=== PATIENT | male | born 1965 | race Caucasian/White ===

== ENCOUNTER 2022-01-18 13:00 | Outpatient (RCR) | payer OTHER, SELFPAY | END 2022-03-01 16:48 | disposition home or self-care (01) | PROVIDERS: PCP Family Medicine; Visit Provider Orthopaedic Surgery Sports Medicine | DX: M76.9 Unspecified enthesopathy, lower limb, excluding foot (principal); Z51.89 Encounter for other specified aftercare | CPT/HCPCS: 97110; 97140; 97162 ==

== ENCOUNTER 2022-12-30 10:08 | Outpatient (CLI) | payer OTHER, SELFPAY | END 2022-12-30 10:09 | disposition home or self-care (01) | PROVIDERS: PCP Family Medicine; Visit Provider Family Medicine | DX: Z00.00 Encounter for general adult medical examination without abnormal findings (principal); I10 Essential (primary) hypertension; E78.5 Hyperlipidemia, unspecified; R07.9 Chest pain, unspecified; E66.01 Morbid (severe) obesity due to excess calories; Z12.5 Encounter for screening for malignant neoplasm of prostate | CPT/HCPCS: 80053; 80061; 82043; 82550; 82553; 82570; 84153 ==

== ENCOUNTER 2023-01-13 11:24 | Outpatient (CLI) | payer OTHER, SELFPAY ==
--- NOTE | 2023-01-13 12:30 | W.ANESCHARGE ---
Anesthesia Charges Start Date/Time Anesthesia Start Date: 01/13/23 Anesthesia Start Time: 12:21 Stop Date/Time Anesthesia Stop Date: 01/13/23 Anesthesia Stop Time: 12:54
--- NOTE | 2023-01-13 12:57 | W.ANESCHARGE ---
Anesthesia Charges Start Date/Time Anesthesia Start Date: 01/13/23 Anesthesia Start Time: 12:21 Stop Date/Time Anesthesia Stop Date: 01/13/23 Anesthesia Stop Time: 12:54
== END 2023-01-13 11:25 | disposition home or self-care (01) ==
LOC: OP CLINIC 11:24
PROVIDERS: PCP Family Medicine; Visit Provider Surgery
DX: Z12.11 Encounter for screening for malignant neoplasm of colon (principal); K63.5 Polyp of colon; Z80.0 Family history of malignant neoplasm of digestive organs; Z86.010 Personal history of colon polyps
CPT/HCPCS: 00811; 45385; 88305; J2704

== ENCOUNTER 2023-01-28 12:46 | Outpatient (CLI) | payer OTHER, SELFPAY ==
--- NOTE | 2023-01-28 13:00 | CRLHL7_ITS ---
For Patients: As a result of the Cures Act, medical imaging exams and procedure reports are released immediately into your electronic medical record. You may view this report before your referring provider. If you have questions, please contact your health care provider. CLINICAL HISTORY: Tenderness TECHNIQUE: The carotid circulations and the vertebral arteries in the neck were examined with deal-scale ultrasound, color-flow and Doppler spectral analysis. Degrees of stenosis were determined using SRU 2002 Consensus Panel Criteria. FINDINGS: Sonographic images demonstrate mild bilateral evidence of atherosclerotic plaque formation without suspicious soft tissue mass. There was antegrade blood flow demonstrated within the vertebral arteries and the subclavian arteries demonstrated a normal triphasic waveform. The spectral Doppler tracings of the common carotid, internal and external carotid arteries demonstrate mild abnormal turbulence and spectral broadening within the proximal right ICA. There was elevation of peak systolic blood flow within the proximal right ICA measuring 159 cm/second which would indicate a hemodynamically-significant stenosis by SRU criteria. The ICA/CCA peak systolic velocity ratio measures 0.9 on the right and 0.6 on the left. IMPRESSION: 50-69 percent stenosis of the proximal right ICA. Less than 50 percent stenosis of the left ICA. Dictated by Fish Martinez MD @ 01/28/2023 1:48:01 PM (Electronically Signed)
== END 2023-01-28 12:47 | disposition home or self-care (01) ==
LOC: US 12:46
PROVIDERS: PCP Family Medicine; Visit Provider Family Medicine
DX: I10 Essential (primary) hypertension (principal); I35.1 Nonrheumatic aortic (valve) insufficiency; I34.0 Nonrheumatic mitral (valve) insufficiency; I65.23 Occlusion and stenosis of bilateral carotid arteries; H93.12 Tinnitus, left ear; R07.9 Chest pain, unspecified; E78.5 Hyperlipidemia, unspecified
CPT/HCPCS: 93306; 93880

== ENCOUNTER 2023-02-22 08:12 | Outpatient (CLI) | payer OTHER, SELFPAY ==
[2023-02-22 10:23] VITALS: BP 153/93; PULSE 90
--- NOTE | 2023-02-22 11:53 | W.PM.STED ---
Stress Test Note Date Date of test: 02/22/23 Providers Primary care provider: Cele Remy Stress test physician: Christiano Mack Stress Test Note Stress test ordered: Stress Myoview Indication for test: Chest pain Stress test medicine: Kat Results discussion: Patient is a very nice 57-year-old gentleman who presents for the above test, discussion of the risks benefits side effects is undertaken, along with review of the cardiac stress test medical history. Initial EKG shows normal sinus rhythm, with a blood pressure 150/88, no acute ST wave changes noted. Standard exercise Myoview was done over a time course of 10 minutes 40 seconds. He achieved a metabolic equivalent of 12.1 Mets, with a maximum heart rate of 149. Maximum blood pressure was 190/85 condition was felt to be excellent. During this test there is no appreciable ST wave changes suggestive of ischemia there is no dysrhythmias, and other than some mild leg discomfort, he had no other symptoms. Impression: Negative Electrographic portion of exercise Myoview Follow up suggested: Await nuclear images, clinical correlation with the needed, patient left this testing facility back to baseline, in good condition.
== END 2023-02-22 08:13 | disposition home or self-care (01) ==
LOC: STRESS 08:13
PROVIDERS: PCP Family Medicine; Visit Provider Family Medicine
DX: R07.9 Chest pain, unspecified (principal)
CPT/HCPCS: 78452; 93016; 93017; A9500

== ENCOUNTER 2024-02-13 08:22 | Outpatient (CLI) | payer OTHER, SELFPAY | END 2024-02-13 08:23 | disposition home or self-care (01) | LOC: NFLDREF 02-14 18:53 | PROVIDERS: PCP Physician Assistant Medical; Referring Provider Physician Assistant Medical; Visit Provider Physician Assistant Medical | DX: I10 Essential (primary) hypertension (principal); E78.2 Mixed hyperlipidemia; N52.9 Male erectile dysfunction, unspecified; R53.83 Other fatigue; Z12.5 Encounter for screening for malignant neoplasm of prostate | CPT/HCPCS: 80053; 80061; 84403; G0103 ==

== ENCOUNTER 2024-05-17 15:00 | Outpatient (CLI) | payer OTHER, SELFPAY | END 2024-05-17 15:01 | disposition home or self-care (01) | LOC: NFLDREF 05-27 07:46 | PROVIDERS: PCP Physician Assistant Medical; Referring Provider Physician Assistant Medical; Visit Provider Physician Assistant Medical | DX: Z01.818 Encounter for other preprocedural examination (principal); I10 Essential (primary) hypertension; K40.90 Unilateral inguinal hernia, without obstruction or gangrene, not specified as recurrent; E78.2 Mixed hyperlipidemia; N52.9 Male erectile dysfunction, unspecified | CPT/HCPCS: 80061; 84450; 84460 ==

== ENCOUNTER 2024-05-31 06:25 | Day surgery (SDC) | payer OTHER, SELFPAY ==
[2024-05-31] VITALS (12 sets, daily range): BP systolic 125–151; BP diastolic 54–89; PULSE 59–72; RESP 12–16; TEMP 36.3–36.9; O2SAT 91–97; BMI 32.0
--- OUTSIDE RECORDS SUMMARY | 2024-05-31 06:28 | XMS_ITS | Continuity of Care Document ---
Author Name [facility] Organization [facility] Care Team Providers Care Communications Scientist Name Role Phone [facility] Unavailable Unavailable Problems Combined list of problems from Department of Defense and Veterans Affairs facilities. It does not include entries that were removed or entered in error. Problem Status Onset Date Problem Type Date of Resolution Comments Source Diagnosis: ICD-10-CM H90.3 Sensorineural hearing loss, bilateral Active Diagnosis [facility] Diagnosis: ICD-10-CM Z46.1 Encounter for fitting and adjustment of hearing aid Active Diagnosis [facility] Medications Combined list of outpatient medications from Department of Defense and Veterans Affairs facilities.Medications provided include 1) outpatient medications from the last 15 months, and 2) patient-reported medications. Medication Details Route Status Patient Instructions Prescription Expires Prescription Number Last Dispense Date Ordering Provider Order Date Order Qty Source AMLODIPINE BESYLATE (amlodipine besylate), 10 MG, TABLET, ORAL, LUPIN PHARMACEU, 1000 ea. BOTTLE Active [id number] 4 2023 90 Pharmac y Data Transac tion Service Facilit y AMLODIPINE BESYLATE (amlodipine besylate), 10 MG, TABLET, ORAL, LUPIN PHARMACEU, 1000 ea. BOTTLE Active [id number] 4 2023 30 Pharmac y Data Transac tion Service Facilit y AMLODIPINE BESYLATE (amlodipine besylate), 10 MG, TABLET, ORAL, LUPIN PHARMACEU, 1000 ea. BOTTLE Active [id number] 4 2023 30 Pharmac y Data Transac tion Service Facilit y AMLODIPINE BESYLATE (amlodipine besylate), 10 MG, TABLET, ORAL, LUPIN PHARMACEU, 1000 ea. BOTTLE Active [id number] 4 2023 90 Pharmac y Data Transac tion Service Facilit y LISINOPRIL- HCTZ (LISINOPRIL /HYDROCHLOR OTHIAZIDE), 10-12.5MG, TABLET, ORAL, LUPIN PHARMACEU, 100 ea. BOTTLE Active [id number] 4 2023 90 Pharmac y Data Transac tion Service Facilit y LISINOPRIL- HCTZ (LISINOPRIL /HYDROCHLOR OTHIAZIDE), 10-12.5MG, TABLET, ORAL, LUPIN PHARMACEU, 100 ea. BOTTLE Active [id number] 4 2023 30 Pharmac y Data Transac tion Service Facilit y LISINOPRIL- HCTZ (LISINOPRIL /HYDROCHLOR OTHIAZIDE), 10-12.5MG, TABLET, ORAL, LUPIN PHARMACEU, 100 ea. BOTTLE Active [id number] 4 2023 30 Pharmac y Data Transac tion Service Facilit y LISINOPRIL- HCTZ (LISINOPRIL /HYDROCHLOR OTHIAZIDE), 10-12.5MG, TABLET, ORAL, LUPIN PHARMACEU, 100 ea. BOTTLE Active [id number] 4 2023 90 Pharmac y Data Transac tion Service Facilit y OLOPATADINE HCL (olopatadin e HCl), 0.1 %, DROPS, OPHTHALMIC, SOMERSET THERAP, 5 ml DROP BTL Cancele d [id number] : 2023 0 Pharmac y Data Transac tion Service Facilit y SILDENAFIL CITRATE (sildenafil citrate), 25 MG, TABLET, ORAL, AUROBINDO PHARM, 30 ea. BOTTLE Active [id number] 4 2023 10 Pharmac y Data Transac tion Service Facilit y SIMVASTATIN (SIMVASTATI N), 40MG, TABLET, ORAL, AUROBINDO PHARM, 90 ea. BOTTLE Cancele d [id number] : 2023 0 Pharmac y Data Transac tion Service Facilit y Allergies, Adverse Reactions, Alerts Combined list of allergies from Department of Defense and Veterans Affairs facilities. It does not include entries that were removed or entered in error. Substance Category Reaction Severity Reaction type Status Date Reported Comments Source No Known Allergies Drug allergy (disorder) active 01/03/2009 [facility] ([facility]) Immunizations Combined list of available immunizations from the Department of Defense and Veterans Affairs facilities. Immunization Series Date Given Administered By Site Reaction Lot Number CVX Code Drug Activated Sludge Attendant Status Comments Source typhoid vaccine, parenteral, other than acetone-kille d, dried 1 2002 Unknown, Provider [id number] Sanofi Pasteur ([facility]) complet ed typhoid vaccine, parentera l, other than acetone-k illed, dried DoD influenza virus vaccine, whole virus 1 2002 Unknown, Provider [id number] Sanofi Pasteur ([facility]) complet ed influenza virus vaccine, whole virus DoD influenza virus vaccine, whole virus 1 2002 Unknown, Provider [id number] Sanofi Pasteur ([facility]) complet ed influenza virus vaccine, whole virus DoD tuberculin skin test; purified protein derivative solution, intradermal 1 2001 Unknown, Provider [id number] Sanofi Pasteur ([facility]) complet ed tuberculi n skin test; purified protein derivativ e solution, intraderm al DoD meningococcal polysaccharid e vaccine (MPSV4) 1 2000 Unknown, Provider [id number] Sanofi Pasteur ([facility]) complet ed meningoco ccal polysacch aride vaccine (MPSV4) DoD typhoid vaccine, parenteral, other than acetone-kille d, dried 1 2000 Unknown, Provider [id number] Sanofi Pasteur ([facility]) complet ed typhoid vaccine, parentera l, other than acetone-k illed, dried DoD influenza virus vaccine, whole virus 1 2000 Unknown, Provider [id number] Sanofi Pasteur ([facility]) complet ed influenza virus vaccine, whole virus [facility] tuberculin skin test; purified protein derivative solution, intradermal 1 2000 Unknown, Provider [id number] 96 Sanofi Pasteur ([facility]) complet ed tuberculi n skin test; purified protein derivativ e solution, intraderm al DoD anthrax vaccine 3 1999 Unknown, Provider [id number] [facility] complet ed anthrax vaccine DoD anthrax vaccine 2 1999 Unknown, Provider [id number] [facility] ([place]) complet ed anthrax vaccine DoD anthrax vaccine 1 1999 Unknown, Provider [id number] [facility] complet ed anthrax vaccine DoD tuberculin skin test; purified protein derivative solution, intradermal 1 1999 Unknown, Provider [id number] 96 [facility] ([facility]) complet ed tuberculi n skin test; purified protein derivativ e solution, intraderm al [facility] influenza virus vaccine, whole virus 1 1998 Unknown, Provider 16 () complet ed influenza virus vaccine, whole virus DoD typhoid vaccine, parenteral, other than acetone-kille d, dried 1 1998 Unknown, Provider [id number] 41 [employer] ([place]) complet ed typhoid vaccine, parentera l, other than acetone-k illed, dried DoD influenza virus vaccine, whole virus 2 1997 Unknown, Provider [id number] 16 [employer] ([place]) complet ed influenza virus vaccine, whole virus DoD influenza virus vaccine, whole virus 1 1996 Unknown, Provider [id number] 16 [employer] ([place]) complet ed influenza virus vaccine, whole virus [facility] typhoid vaccine, parenteral, other than acetone-kille d, dried 1 1996 Unknown, Provider [id number] 41 [employer] ([place]) complet ed typhoid vaccine, parentera l, other than acetone-k illed, dried [facility] meningococcal polysaccharid e vaccine (MPSV4) 1 1995 Unknown, Provider [id number] 32 [employer] ([place]) complet ed meningoco ccal polysacch aride vaccine (MPSV4) [facility] hepatitis A vaccine, adult dosage 2 1995 Unknown, Provider [id number] 52 [employer] ([place]) complet ed hepatitis A vaccine, adult dosage DoD yellow fever vaccine 1 1994 Unknown, Provider [id number] 37 [employer] ([place]) complet ed yellow fever vaccine [facility] tetanus and diphtheria toxoids, adsorbed, preservative free, for adult use (2 Lf of tetanus toxoid and 2 Lf of diphtheria toxoid) 1 1994 Unknown, Provider 09 () complet ed tetanus and diphtheri a toxoids, adsorbed, preservat mariela free, for adult use (2 Lf of tetanus toxoid and 2 Lf of diphtheri a toxoid) DoD typhoid vaccine, parenteral, acetone-kille d, dried ([place] ) 1 1986 Unknown, Provider 53 () complet ed typhoid vaccine, parentera l, acetone-k illed, dried ([place] ) [facility] trivalent poliovirus vaccine, live, oral 1 1984 Unknown, Provider 02 () complet ed trivalent polioviru s vaccine, live, oral DoD vaccinia (smallpox) vaccine 1 1984 Unknown, Provider 75 () complet ed vaccinia (smallpox ) vaccine DoD measles, mumps and rubella virus vaccine 1 1983 Unknown, Provider 03 () complet ed measles, mumps and rubella virus vaccine DoD Encounters Combined list of: 1) Encounters from Department of Veterans Affairs facilities going back up to thelast 18 months. 2) Encounters from the Department of Defense facilities going back up to 280 months. Location Location Details Encounter Type Encounter Number Reason For Visit Attending Provider ADM Date DC Date Status Disposition Source [place] [facility] HEARING AID REPAIR/MOD IFYING [id number] Diagnos is: ICD-10- CM Z46.1 Encount er for fitting and adjustm ent of hearing aid<br/ > DONTANNER PALACIOSERLY A 05/04 [facility] [place] [facility] CONFORMITY EVALUATION [id number] Diagnos is: ICD-10- CM H90.3 Sensori neural hearing loss, bilater al
DONOHTANNER GANDHI MBERLY A 06/16 [facility] Procedures Combined list of: 1) Procedures from Department of Veterans Affairs facilities going back up to thelast 18 months, not all [place] non-surgical procedures are included; 2) All procedures from the Department of [facility] facilities. Procedure Procedure Type Code Date Perfomer Comments Sourc e PRESCRIPTION DRUG, ORAL, NONCHEMOTHERAPEUTIC, NOT OTHERWISE SPECIFIED 05/28/2004 [facility] UNLISTED CHEMISTRY PROCEDURE 02/24/2004 [facility] DETERMINATION OF REFRACTIVE STATE 05/20/2003 [facility] THERAPEUTIC PROCEDURE, 1 OR MORE AREAS, EACH 15 MINUTES; THERAPEUTIC EXERCISES TO DEVELOP STRENGTH AND ENDURANCE, RANGE OF MOTION AND FLEXIBILITY 04/08/2003 [facility] THERAPEUTIC PROCEDURE, 1 OR MORE AREAS, EACH 15 MINUTES; THERAPEUTIC EXERCISES TO DEVELOP STRENGTH AND ENDURANCE, RANGE OF MOTION AND FLEXIBILITY 03/22/2003 [facility] MANUAL THERAPY TECHNIQUES (EG, MOBILIZATION/ MANIPULATION, MANUAL LYMPHATIC DRAINAGE, MANUAL TRACTION), 1 OR MORE REGIONS, EACH 15 MINUTES 03/20/2003 [facility] MANUAL THERAPY TECHNIQUES (EG, MOBILIZATION/ MANIPULATION, MANUAL LYMPHATIC DRAINAGE, MANUAL TRACTION), 1 OR MORE REGIONS, EACH 15 MINUTES 03/15/2003 [facility] APPLICATION OF A MODALITY TO 1 OR MORE AREAS; ULTRASOUND, EACH 15 MINUTES 03/13/2003 [facility] THERAPEUTIC PROCEDURE, 1 OR MORE AREAS, EACH 15 MINUTES; THERAPEUTIC EXERCISES TO DEVELOP STRENGTH AND ENDURANCE, RANGE OF MOTION AND FLEXIBILITY 03/08/2003 [facility] MANUAL THERAPY TECHNIQUES (EG, MOBILIZATION/ MANIPULATION, MANUAL LYMPHATIC DRAINAGE, MANUAL TRACTION), 1 OR MORE REGIONS, EACH 15 MINUTES 03/06/2003 [facility] THERAPEUTIC PROCEDURE, 1 OR MORE AREAS, EACH 15 MINUTES; THERAPEUTIC EXERCISES TO DEVELOP STRENGTH AND ENDURANCE, RANGE OF MOTION AND FLEXIBILITY 03/04/2003 [facility] THERAPEUTIC PROCEDURE, 1 OR MORE AREAS, EACH 15 MINUTES; THERAPEUTIC EXERCISES TO DEVELOP STRENGTH AND ENDURANCE, RANGE OF MOTION AND FLEXIBILITY 02/01/2003 [facility] THERAPEUTIC PROCEDURE, 1 OR MORE AREAS, EACH 15 MINUTES; THERAPEUTIC EXERCISES TO DEVELOP STRENGTH AND ENDURANCE, RANGE OF MOTION AND FLEXIBILITY 01/03/2003 [facility] THERAPEUTIC PROCEDURE, 1 OR MORE AREAS, EACH 15 MINUTES; THERAPEUTIC EXERCISES TO DEVELOP STRENGTH AND ENDURANCE, RANGE OF MOTION AND FLEXIBILITY 12/13/2002 [facility] LOCAL EXCISION OF LESION OR TISSUE OF OTHER BONE, EXCEPT FACIAL BONES 10/31/2002 [facility] SUTURE OF CAPSULE OR LIGAMEN T OF UPPER EXTREMITY 10/31/2002 [facility] DETERMINATION OF REFRACTIVE STATE 02/26/2002 [facility] CARDIOVASCULAR STRESS TEST USING MAXIMAL OR SUBMAXIMAL TREADMILL OR BICYCLE EXERCISE, CONTINOUS ELECTROCARDIOGRAPHIC MONITORING, PHARMACOLOGIC STRESS; TRACING ONLY, W/O INTERPRET AND REPORT 12/13/2001 [facility] OPHTHALMOLOGICAL SERVICES: MEDICAL EXAMINATION AND EVALUATION WITH INITIATION OF DIAGNOSTIC AND TREATMENT PROGRAM; INTERMEDIATE, NEW PATIENT 09/10/1999 [facility] CLOSED REDUCTION OF DISLOCATION OF SHOULDER 10/11/1993 D oD Social History Combined list of available smoking, tobacco, and other social history from Department of Defense and Veterans Affairs facilities. Social History Type Response Date Comment Sourc e This section is an empty social history section. DoD
--- OUTSIDE RECORDS SUMMARY | 2024-05-31 06:28 | XMS_ITS | Encounter Summary ---
Author Name [facility] [place] [facility] [place] [facility] [place] Address [address] [place] [id number] Support Name Relationship Address Phone LISA SMITH Next of Kin [address] [address] LISA SMITH [place] [facility] Contact [address] [address] Selected Encounter This section includes the information on record at [place] for the Encounter. Date/Time Encounter Type Encounter Description Reason Provider Source Jun 16, 2023 07:45 AM CONFORMITY EVALUATION AUDIOLOGY ICD-10-CM H90.3 Sensorineural hearing loss, bilateral MANE COX Rosio Encounter Template Text not used by [place] Assessments - Encounter Diagnoses This section includes the primary and secondary diagnoses documented for the Encounter. Date/Time Primary/Secondary Diagnosis Diagnosis Name Provider Source Jun 16, 2023 03:55 PM PRIMARY Sensorineural hearing loss, bilateral MANE COX [facility] Jun 16, 2023 03:55 PM SECONDARY Encounter for fitting and adjustment of hearing aid MANE COX [facility] Jun 16, 2023 03:55 PM SECONDARY Tinnitus, bilateral MANE COX [facility] Encounter Notes: All associated encounter notes This section contains the clinical notes associated to the Encounter. Date/Time Encounter Note(s) Provider Source Jun 16, 2023 07:39 AM AUDIOLOGY NOTE: LOCAL TITLE: AUDIOLOGY CLINIC NOTE STANDARD TITLE: AUDIOLOGY NOTE DATE OF NOTE: JUN 16, 2023@07:39 ENTRY DATE: JUN 16, 2023@07:39:26 AUTHOR: DENNIS COX COSIGNER: URGENCY: STATUS: COMPLETED DIAGNOSIS: Encounter for Fitting and Adjustment of Hearing Aid Sensorineural loss - bilateral Tinnitus - bilateral REASON FOR VISIT: was seen for Hearing Aid [place] Appointment. Therapeutic - hearing aid fitting, conformity evaluation (real-ear measures), orientation and counseling using a standard curriculum (30 minutes). LOCATION OF VISIT (ROOM NUMBER): 115 Personal Protective Equipment (PPE): PPE medical mask was worn by provider as required by [place] guidelines; mask was also worn by as recommended by [place] guidelines. Sherwood was unaccompanied. HISTORY: denies changes in hearing or new otologic symptoms since their last visit to the clinic. Sherwood is an experienced hearing aid wearer and is returning for the fitting of his replacement lost hearing aids (the aids were lost when he sent them for repair & [facility] shipped them to the wrong address). Hearing Aids (Right and Left), fit (date): 03/25/2021 L&D REPLACEMENT Make: Oticon Model: More 1 MINIRITE-R Style: [facility] Serial #: [id number] Accessories: none LOST Hearing Aids (Right and Left), fit (date): 03/25/2021 LOST Make: Oticon Model: More 1 MINIRITE-R Style: [facility] Serial #: [id number] Accessories: none OTOSCOPY: Both Ears: Free of excessive cerumen. Normal anatomy bilaterally. ACTION + CONFORMITY EVAUATION (VERIFICATION OF HEARING AID FUNCTION): Hearing aids are a good physical fit to pt's ears. Feedback test was completed and feedback cage manager was activated. No feedback was noted from either aid, even with head/jaw movement or with objects near the ears. Hearing aids were programmed to NAL-NL2 prescriptive targets with the AudioScan Verifit, which were derived from the Veterans hearing loss. According to the NAL-NL2 fitting method, the patient's hearing aids are meeting target for soft, average, and loud speech. Loudness tolerance was measured using a 90 dB MPO tone sweep and the patient was able to tolerate the output of the hearing devices. Veterans subjective impressions were considered while adjusting the hearing aids. Sherwood reported good sound quality and equal balance between ears after adjustments were made. Sherwood reported a comfortable fit. Sherwood demonstrated understanding of the new aids and was able to insert the hearing aids appropriately, as well as manipulate the volume control. Volume control enabled - Synchronized Program button enabled Programs are as follows: 1. Automatic (General) 2. Speech In Noise 3. Comfort Veterans iPhone cell phone was paired to the hearing aids. A practice phone call was completed to verify functionality. Education and counseling was completed regarding streaming capabilities. The wet end helper phone application was reviewed in detail (volume control, program changes, settings, etc.) and demonstrated in the office. Provided pt with the wet end helper technical support phone number. Sherwood was counseled using a standard curriculum (30 minutes) regarding: - Full-time hearing aid use and acclimating to amplification - Realistic expectations for hearing aid use - Appropriate communication strategies - Warning about lithium ion toxicity - How to charge the hearing aids - Location and operation of all controls - Proper care and maintenance - Protecting hearing in high noise levels - [facility] and Call Center contact information and services, including the trial period. - counseled using a standard curriculum on tinnitus, its physiologic basis, potential triggers, and treatment options/management strategies such as using a fan at night, avoiding silence, and trying to habituate to the sound. Ordered a Sound [place] Tinnitus Masker with pillow speakers. Prognosis for success is good, given the Veterans response to the hearing aids. Hearing aids were issued and supplies were mailed. PLAN: 1) does not feel he needs follow up and so will return to clinic for service as needed. IS IN AGREEMENT WITH THIS PLAN Suicide Screen: C-SSRS Screening [place]-Suicide Severity Rating Scale (C-SSRS Screener) 1. Over the past month, have you wished you were or wished you could go to sleep and not wake up? No 2. Over the past month, have you had any actual thoughts of killing yourself? No 3. Over the past month, have you been thinking about how you might do this? Response not required due to responses to other questions. 4. Over the past month, have you had these thoughts and had some intention of acting on them? Response not required due to responses to other questions. 5. Over the past month, have you started to work out or worked out the details of how to kill yourself? Response not required due to responses to other questions. 6. If yes, at any time in the past month did you intend to carry out this plan? Response not required due to responses to other questions. 7. In your lifetime, have you ever done anything, started to do anything, or prepared to do anything to end your life (for example, collected pills, obtained a gun, gave away valuables, went to the roof but didn't jump)? No 8. If YES, was this within the past 3 months? Response not required due to responses to other questions. /jasper/ Lexus BRICENO, CCC-A DESIGN PROJECT MANAGER Signed: 06/16/2023 15:56 DENNIS COX [facility]
[2024-05-31] MEDS: SODIUM CHLORIDE 0.9 % (FLUSH) 10 ML SYRINGE IVF (07:10)
[2024-05-31] MEDS: LACTATED RINGERS 500 ML 500 ML 100 ML IV (07:12)
[2024-05-31] MEDS: CEFAZOLIN 2 GM INJ IVP (08:35)
[2024-05-31] MEDS: BUPIVACAINE 0.25% 30 ML INJECTION (09:10)
--- NOTE | 2024-05-31 09:16 | PM.GSPRC ---
Operative Note Date of procedure: 05/31/24 Pre-op diagnosis: Symptomatic left inguinal hernia Post-op diagnosis: Same Type of Procedure: Laparoscopic repair of left inguinal hernia with mesh Indications: The patient is a 58-year-old male who has a history of a left inguinal hernia that more recently became symptomatic with running and activity. On exam he was found to have a small reducible left inguinal hernia. After discussion of options, he agreed to proceed with repair. Procedure Description: After discussing the risks and benefits of the procedure, the patient signed informed consent.? The operative site was marked and the patient was brought to the operating room and placed on the operating table in supine position.? Care was taken to pad the patient's pressure points.?? The patient was then intubated by anesthesia.?? The operative site was then prepped and draped in the usual sterile fashion.? A time-out was then performed. A curvilinear incision was made below the umbilicus. Dissection was carried down to subcutaneous tissue until the anterior rectus fascia was encountered. This was incised off the midline on the left. The rectus muscle fibers were then retracted exposing the posterior fascia. A port with a dissecting balloon was then introduced into the pre-preperitoneal space. This was inflated under direct vision. The balloon was deflated, removed, and a 10 mm working port was placed. The space was insufflated and a 10 mm 30-degree scope was then advanced into the space. Two 5 mm ports were placed in the midline under direct vision. Dissection began on the left side. Jam's ligament and the pubic bone were exposed medially. Following this, dissection was carried out laterally. A indirect sac was noted. This was dissected free from the cord structures using blunt dissection. Small vessels that were noted to be bleeding in the preperitoneal fat were cauterized for hemostasis the sac was noted to be quite small. The internal ring was examined and the groin palpated to ensure no cord lipoma was noted. There was none. Once the sac was completely reduced, a piece of Bard 3DMax mesh for the appropriate side was placed into the abdomen. This was positioned with the marker pointed medially. A Tacker was used to attach the mesh medially at Jam's ligament. Once this was completed, the preperitoneal space desufflated under direct vision to ensure the mesh laid flat. 15 mL of 0.5% Marcaine were instilled into the preperitoneal space through a port. The ports were removed. The fascia from the infraumbilical port was closed with 0 Vicryl. The skin incisions were closed with absorbable subcuticular suture. Sterile dressings were then applied. The scrotum was examined to ensure that both testicles were down. Instrument sponge and needle counts were correct at the end of the case. ? The patient was then woken and transported to the recovery area in stable condition. ? The patient tolerated the procedure well. Findings: Small indirect left inguinal hernia Implants: Bard 3DMax mesh Anesthesia: GETA Surgeon: Myrna Marie MD Estimated blood loss (mL): 5 Condition: stable Disposition: PACU
--- NOTE | 2024-05-31 09:32 | P.ANES_ITS ---
Anesthesia Charges Start Date/Time Anesthesia Start Date: 05/31/24 Anesthesia Start Time: 08:16 Stop Date/Time Anesthesia Stop Date: 05/31/24 Anesthesia Stop Time: 09:28 Coding CPT Codes CPT Codes: ANESTH REPAIR OF HERNIA - 40529 ([id number]) P2 - PATIENT W/MILD SYST DISEASE, QK - CARDIAC REHABILITATION PROGRAM DIRECTOR 2-4 CNCRNT ANES PROC, QX - RECEIVABLE MANAGER SVC W/ MD MED DIRECTION
--- NOTE | 2024-05-31 09:32 | W.ANESCHARGE ---
Anesthesia Charges Start Date/Time Anesthesia Start Date: 05/31/24 Anesthesia Start Time: 08:16 Stop Date/Time Anesthesia Stop Date: 05/31/24 Anesthesia Stop Time: 09:28 Coding CPT Codes CPT Codes: ANESTH REPAIR OF HERNIA - 21589 ([id number]) P2 - PATIENT W/MILD SYST DISEASE, QK - REVERSE ENGINEER 2-4 CNCRNT ANES PROC, QX - TERRAZZO HELPER SVC W/ MD MED DIRECTION
--- NOTE | 2024-05-31 09:49 | P.ANES_ITS ---
Anesthesia Charges Start Date/Time Anesthesia Start Date: 05/31/24 Anesthesia Start Time: 08:16 Stop Date/Time Anesthesia Stop Date: 05/31/24 Anesthesia Stop Time: 09:28 Coding CPT Codes CPT Codes: ANESTH SURG LOWER ABDOMEN - 04516 ([id number]) QK - ORTHOPEDIC TECH 2-4 CNCRNT ANES PROC, QX - OAKES MACHINE OPERATOR SVC W/ MD MED DIRECTION, P2 - PATIENT W/MILD SYST DISEASE
--- NOTE | 2024-05-31 09:49 | W.ANESCHARGE ---
Anesthesia Charges Start Date/Time Anesthesia Start Date: 05/31/24 Anesthesia Start Time: 08:16 Stop Date/Time Anesthesia Stop Date: 05/31/24 Anesthesia Stop Time: 09:28 Coding CPT Codes CPT Codes: ANESTH SURG LOWER ABDOMEN - 05540 ([id number]) QK - PAVER LAYER 2-4 CNCRNT ANES PROC, QX - TOOL PLANNER SVC W/ MD MED DIRECTION, P2 - PATIENT W/MILD SYST DISEASE
== END 2024-05-31 11:06 | disposition home or self-care (01) ==
PROVIDERS: PCP Physician Assistant Medical; Visit Provider Surgery
PROC: (CPT 49650; principal; 2024-05-31 08:00)
DX: K40.90 Unilateral inguinal hernia, without obstruction or gangrene, not specified as recurrent (principal)
CPT/HCPCS: 49650; 00830; 00840; C1781; J0330; J0665; J0690; J1100; J1885; J2405; J2704; J3010; J3490; J7120

== ENCOUNTER 2025-03-11 08:00 | Outpatient (CLI) | payer OTHER, SELFPAY | END 2025-03-11 08:01 | disposition home or self-care (01) | LOC: NFLDREF 03-21 01:45 | PROVIDERS: PCP Physician Assistant Medical; Referring Provider Physician Assistant Medical; Visit Provider Physician Assistant Medical | DX: I10 Essential (primary) hypertension (principal); E78.2 Mixed hyperlipidemia; Z00.00 Encounter for general adult medical examination without abnormal findings | CPT/HCPCS: 80053; 80061; 84443; G0103 ==

== ENCOUNTER 2025-03-22 06:50 | Outpatient (CLI) | payer OTHER, SELFPAY ==
--- NOTE | 2025-03-22 07:15 | CRLHL7_ITS ---
For Patients: As a result of the Century Cures Act, medical imaging exams and procedure reports are released immediately into your electronic medical record. You may view this report before your referring provider. If you have questions, please contact your health care provider. INDICATION: Elevated liver function tests COMPARISON: none TECHNIQUE: Real time deal scale imaging and color Doppler analysis was performed of the right upper quadrant. FINDINGS: The liver echotexture is diffusely increased and coarsened. Liver measures 18.2 cm. No intrahepatic mass. There is a normal appearance of the hepatic IVC and proximal abdominal aorta. There is no evidence of ascites. The gallbladder is of normal size and there is no evidence of intraluminal stones or sludge. The gallbladder wall measures 1 mm in thickness. The common bile duct is of normal size and measures 6 mm in diameter at the level of the samir hepatis. The pancreas appears normal. There is no evidence of a stone or hydronephrosis within the right kidney. The right kidney measures 11.7 cm in length. IMPRESSION: Hepatomegaly with severe hepatic steatosis. Remainder unremarkable. Dictated by Fish Martinez MD @ 03/22/2025 9:53:44 AM (Electronically Signed)
== END 2025-03-22 06:51 | disposition home or self-care (01) ==
PROVIDERS: PCP Physician Assistant Medical; Visit Provider Physician Assistant Medical
DX: R79.89 Other specified abnormal findings of blood chemistry (principal); R16.0 Hepatomegaly, not elsewhere classified; K76.9 Liver disease, unspecified
CPT/HCPCS: 76705

== ENCOUNTER 2025-04-15 08:25 | Day surgery (SDC) | payer OTHER, SELFPAY ==
[2025-04-15] VITALS (8 sets, daily range): BP systolic 128–160; BP diastolic 73–90; PULSE 58–66; RESP 14–16; TEMP 36.7–36.8; O2SAT 96–99; BMI 31.1
[2025-04-15] MEDS: ETHYL CHLORIDE 1 APPLICATION 1 APPLIC TOPICAL (09:20)
[2025-04-15] MEDS: BUPIVACAINE 0.5% 30 ML INJECTION (09:20)
[2025-04-15] MEDS: BACITRACIN OINTMENT BULK TUBE 1 APPLIC TOPICAL (11:00)
--- NOTE | 2025-04-15 12:52 | P.ORPRC_ITS ---
Procedure Note Date of procedure: 04/15/25 Procedure: PREOPERATIVE DIAGNOSIS: 1. Left ring finger flexor tenosynovitis - trigger finger POSTOPERATIVE DIAGNOSIS: 1. Left ring finger flexor tenosynovitis - trigger finger PROCEDURE: 1. Left ring finger flexor tendon sheath open release (A1 bryanna) SURGEON: Zuhair Veronica MD. PRINTING ROLLER HANDLER: DEBORAH Fernandez ANESTHESIA: Local anesthetic 4ml via 50:50 mixture of 1% Lidocaine with epi and 0.5% marcaine plain EBL: 2ml IMPLANTS: None TOURNIQUET: None COMPLICATIONS: None evident INDICATIONS: The patient is a pleasant 59-year-old male who has experienced left ring finger catching/triggering for number of months. It has progressively gotten worse. Given the failure of nonoperative management, and how this affects daily life, surgery was recommended. DESCRIPTION OF PROCEDURE: Following a thorough discussion of risks, benefits, and alternatives consent was obtained and the operative digit(s) was marked. The patient was brought to the operating room and placed supine on the operating table. Local anesthesia induction was undertaken in preop holding. No antibiotics were administered as this was planned to be a local case only. Proper time-out was performed identifying proper patient, site, and procedure. The operative extremity was prepped and draped in the appropriate sterile fashion using ChloraPrep. An incision was made on the palmar surface of the hand overlying the MCP joint region of the appropriate digit(s) respecting the palmar creases being cautious not to cross these perpendicularly. Sharp incision through the skin, and blunt dissection through subcutaneous tissue allowing protection of crossing neurologic structures. The A1 bryanna was visualized directly. It was incised sharply with a 15 blade. It was released completely from its distal to proximal extent under direct visualization. The tendon was inspected and found to be mildly striated consistent with some friction. Otherwise, it was intact. The tendon was removed out of the wound, and further inspected. The patient was asked to manually flex and extend the digits and showed no further catching. The catching which was visualized after tourniquet inflation, was no longer evident with reproduction of a manual fist and relaxation. Closure was performed with 4-O nylon in interrupted fashion. Soft dressings were applied, and the patient was transferred to the recovery room in stable condition. PLAN: 1. Encourage elevation of the operative extremity. 2. Range of motion and icing of the fingers and hand/wrist as tolerated/needed. 3. Ibuprofen/acetaminophen and/or oxycodone as needed for pain control. 4. Follow up with PA visit in 12-16 days for wound check and suture removal.
== END 2025-04-15 11:17 | disposition home or self-care (01) ==
LOC: OR 08:25
PROVIDERS: PCP Physician Assistant Medical; Visit Provider Orthopaedic Surgery Sports Medicine
PROC: (CPT 26055; principal; 2025-04-15 10:45)
DX: M65.342 Trigger finger, left ring finger (principal); M65.842 Other synovitis and tenosynovitis, left hand
CPT/HCPCS: 26055; J0665